=== PATIENT | female | born 1995 | race African-American/Black ===

== ENCOUNTER 2023-10-05 12:34 | Emergency (ER) | payer OTHER ==
[~2023-10-05] VITALS: Ht 167.6 cm; Wt 49.9 kg
[2023-10-05] MEDS ORDERED: ONDANSETRON HCL 2 MG/ML VIAL IV ONE (13:15)
[2023-10-05] MEDS ORDERED: HYOSCYAMINE SULFATE 0.125 MG TAB.SUBL SL ONE (13:15)
[2023-10-05] MEDS ORDERED: FAMOTIDINE/PF 20 MG/2 ML VIAL IV PUSH ONE (13:15)
[2023-10-05 13:57] LABS: HEMATOCRIT 36.2 % (36.0-45.00); HEMOGLOBIN 12.5 g/dL (12.0-15.00); MEAN CELL VOLUME 98.5 fL (80.00-100.00); MEAN CORPUSCULAR HEMOGLOBIN 34.1 pg (27.00-32.0); MEAN CORPUSCULAR HGB CONC 34.6 g/dl (32.0-36.0); PLATELET COUNT 184 K/uL (150-450); RED BLOOD COUNT 3.67 M/uL (4.00-6.00); RED CELL DISTRIBUTION WIDTH 12.6 % (11.5-14.5)
[2023-10-05 14:29] LABS: ALBUMIN 4.1 gm/dL (3.4-5.0); BILIRUBIN TOTAL 0.41 mg/dL (0.3-1.2); CREATININE SERUM 0.92 mg/dL (0.55-1.02); GFR 73.79; GLOBULINA 3.9 G/DL (2.4-3.5); POTASSIUM 3.75 mEq/L (3.5-5.1)
== END 2023-10-05 15:02 | disposition home or self-care (01) ==
LOC: ER 12:34
PROVIDERS: General Practice
DX: A05.8 Other specified bacterial foodborne intoxications (principal)